=== PATIENT | female | born 1930 | race Caucasian/White ===

== ENCOUNTER → 2017-11-09 | Outpatient (REF) | payer MEDICARE, MEDICAID ==
[~2017-11-09] MED LIST: ACET-1966 PO; ACET-2031 PO; ACET-2043 PO; ALE10 PO; ALEN70TA43 PO; ATOR40TA69 PO; BETA15OI20 TP; BISA-71 PO; CALC-947 PO; CEPH500T7 PO; CHOL100061 PO; CHOL200021 PO; CHOL500025 PO; CIPR-344 PO; CIPR-345 PO; CYAN100017 PO; DICL100G39 TOP; DIME240C2 PO; DOXY-179 PO; EZE10 PO; FURO-45 PO; GAB100 PO; GABA-547 PO; GUAI-244 PO; HYDR12.558 PO; INTE30KI IM; INTE30KI6 IM; INTE30SY IM ONLY; LEV112 PO; LEV88 PO; LEVO-3 PO; LEVO500T PO; LEVO88TA45 PO; LOR5/325 PO; LUTE20CA11 PO; MECL-111 PO; MELA3TAB31 PO; MOM PO; NAPR-1043 PO; NAPR220C12 PO; NIT100 PO; NITR-105 PO; NOR10 PO; PNEU0.5D3 IM; POLY17PO25 PO; SERT25TA90 PO; SPIR1TAB26 PO; SPIR1TAB28 PO; SYSTANEPT OD; SYSTANODPT OU; TRAM-420 PO; VITA1CAP46 PO; ZOLE5INF IV; [UNRECOGNIZED DRUG - CODE] IM; [UNRECOGNIZED DRUG - OTHER] TOP
== END ==
LOC: ZZSPRING 14:16
PROVIDERS: ATTEND Emergency Medicine
DX: R19.7 Diarrhea, unspecified (principal)
CPT/HCPCS: 87045; 87177; 87324; 87449

== ENCOUNTER → 2017-11-24 | Outpatient (CLI) | payer MEDICARE, MEDICAID ==
--- NOTE | 2017-11-24 10:21 | RADIOLOGY IMAGING REPORT ---
FACILITY: [facility] PATIENT NAME: Heather Olguin : 1930 MR: [id number] V: [id number] EXAM DATE: ORDERING PHYSICIAN: CHIVO KAYE TECHNOLOGIST: Location: [facility] [place] Patient: Heather Olguin : 1930 Visit/Account:[id number] Date of Sevice: 11/24/2017 Exam type: ANKLE 3 VIEW MIN RIGHT History: medial ankle tenderness Comparison: None. Findings: There is diffuse osteopenia present. There are mild degenerative changes at the talotibial joint. T here is a well-corticated bony density projecting just medial to the medial malleolus which may repre sent an accessory ossicle versus the sequelae of old trauma. There is no evidence of acute fracture or dislocation involving the right ankle. There is a cortical irregularity seen along the base of th e right fifth metatarsal. This could represent superimposed shadow although fracture not totally exc luded. Clinical correlation needed IMPRESSION: 1. Degenerative changes of the right ankle as described Cortical irregularity along the base of the right fifth metatarsal which could represent a superimpos ed shadow although fracture not totally ruled out. Correlation with patient symptoms needed Report Dictated By: Lisset Godfrey MD at 11/24/2017 10:14 AM Report E-Signed By: Lisset Godfrey MD at 11/24/2017 10:17 AM WSN:[email or web address]
== END ==
LOC: RAD 09:08
PROVIDERS: ATTEND Emergency Medicine
DX: M85.871 Other specified disorders of bone density and structure, right ankle and foot (principal)

== ENCOUNTER → 2017-12-15 | Outpatient (CLI) | payer MEDICARE, MEDICAID | LOC: ZZSPRING 01:43 | PROVIDERS: ATTEND Emergency Medicine | DX: E03.9 Hypothyroidism, unspecified (principal); I10 Essential (primary) hypertension; S93.429A Sprain of deltoid ligament of unspecified ankle, initial encounter; G62.9 Polyneuropathy, unspecified; M81.0 Age-related osteoporosis without current pathological fracture; E53.8 Deficiency of other specified B group vitamins | CPT/HCPCS: 36415; 82040; 82247; 82306; 82310; 82374; 82435; 82565; 82607; 82947; 84075; 84132; 84155; 84295; 84443; 84450; 84460; 84520; 85027 ==

== ENCOUNTER → 2018-05-19 | Outpatient (CLI) | payer MEDICARE, MEDICAID ==
[~2018-05-19] MED LIST changes: +CYAN500T54 PO; +DOCU100T13 PO; +PROM12.556 PO
--- NOTE | 2018-05-19 15:17 | RADIOLOGY IMAGING REPORT ---
FACILITY: [facility] [place] PATIENT NAME: Heather Olguin : 1930 MR: [id number] V: [id number] EXAM DATE: ORDERING PHYSICIAN: CHIVO KAYE TECHNOLOGIST: [place] [facility] [place] Olgu[place] : 1930 Visit/Account:[id number] Date of Sevice: 05/19/2018 BONE MINERAL DENSITY HISTORY: Osteoporosis follow up DEXA Scan Clinical history: Osteopenia. Comparison: DEXA scan from . LUMBAR SPINE: The bone mineral density (BMD) measured from L1-L4 correlates with a Z-score 09/03/2016 and a Z score of 0.0 and a T-score of -2.2 which is osteopenia as defined by the World Health Organization. The c orresponding risk of fracture in the lumbar spine is increased 5 times compared with a young adult re ference population. This value has remained relatively stable by 0.4 % since the prior study. More than 5% change is considered significant. HIP: Bone mineral density (BMD) measured in the Left total hip region correlates with a Z-score -0.9 and a T-score of -3.6 which is osteoporosis as defined by the World Health Organization. The correspondin g risk of fracture in the hip is increased 12 times compared with a young adult reference population. This value has improved by 8.4 % since the prior study. More than 5% change is considered significa nt. Bone mineral density (BMD) measured in the Femoral Neck region measures 0.557 g/cm2. T score of -3.6 . Osteoporosis. Fracture risk increased 12 times IMPRESSION: 1. Lumbar spine: Osteopenia. There has been No significant change in the bone mineral density since the previous exam. 2. Left Total Hip: Osteoporosis. Improvement in bone mineral density by 8.4% 3. Femoral Neck: Bone Mineral Density is 0.557g/cm2. Osteoporosis. The next DEXA scan of this patient should include the following sites: L1-L4 and the left hip. FRAX? WHO Fracture Risk Assessment Tool link: <http://www.shef.ac.uk/FRAX/tool.jsp?locationValue=9> PLEASE NOTE: 1) The World Health Organization defines low BMD as follows: T-score Normal > -1 Osteopenia < -1 and > -2.5 Osteoporosis < -2.5 without fractures Established osteoporosis < -2.5 with fractures 2) In general, you may wish to consider: Diagnosis Treatment Follow-up DEXA Normal BMD Prevention 2-3 years Osteopenia Prevention/therapy 1-2 years Osteoporosis Therapy Yearly 3) Fracture risk estimated from the T-score is more accurate for vertebral fractures (often spontane ous) than for hip fractures. Report Dictated By: Malik Gagnon MD at 05/19/2018 3:08 PM Report E-Signed By: Malik Gagnon MD at 05/19/2018 3:13 PM WSN:[email or web address]
--- NOTE | 2018-05-19 15:25 | RADIOLOGY IMAGING REPORT ---
FACILITY: [facility] - [place] PATIENT NAME: Heather Olguin : 1930 MR: [id number] V: [id number] EXAM DATE: ORDERING PHYSICIAN: CHIVO KAYE TECHNOLOGIST: Location: [facility] - [place] Patient: Heather Olguin : 1930 Visit/Account:[id number] Date of Sevice: 05/19/2018 THYROID HISTORY: Nodule follow up EXAMINATION: Thyroid ultrasound HISTORY: Goiter. Left lobe removed in 1948. COMPARISON: None. FINDINGS: Thyroid size: Right lobe 4.3 x 2.2 x 1.9 cm Left lobe: There appears to be a portion of left lobe of the thyroid remaining that his difficu lt to completely delineate but appears to be approximately 2.6 x 0.6 cm by my measurements. Thyroid nodules: Right lobe - within the heterogenous thyroid gland with what appears to be a heterogenous nodul e in the inferior aspect measuring approximately 1.8 cm in size. Left lobe - none Isthmus - none Thyroid vascularity: normal IMPRESSION: 1. Stable appearing thyroid ultrasound. No interval change in its overall appearance compared to pr evious study. Specifically, stable appearing next solid cystic lesion in the right inferior pole. Report Dictated By: Malik Gagnon MD at 05/19/2018 3:14 PM Report E-Signed By: Malik Gagnon MD at 05/19/2018 3:21 PM WSN:[email or web address]
--- NOTE | 2018-05-20 09:26 | RADIOLOGY IMAGING REPORT ---
FACILITY: [facility] - [place] PATIENT NAME: Heather Olguin : 1930 MR: [id number] V: [id number] EXAM DATE: ORDERING PHYSICIAN: CHIVO KAYE TECHNOLOGIST: Location: [facility] Patient: Heather Olguin : 1930 Visit/Account:[id number] Date of Sevice: 05/19/2018 ARTERIAL BILAT LOWER EXT INDICATION: Absent. Pulses. COMPARISON: None available. FINDINGS: Bilateral lower extremity arterial ultrasound. Mild scattered calcified plaque bilaterally. LEFT: Common femoral artery: Biphasic waveform with peak systolic velocity of 115 cm/s. Deep femoral artery: Biphasic waveform with peak systolic velocity is 79.2 cm/s. Proximal superficial femoral artery: Biphasic waveform with a peak systolic velocity of 102 cm/s. Mid superficial femoral artery: Biphasic waveform with a peak systolic velocity of 84.1 cm/s. Distal superficial femoral artery: Biphasic waveform with a peak systolic velocity of 140 cm/s. Proximal popliteal artery: Biphasic waveform with a peak systolic velocity of 149 cm/s. Distal popliteal artery: Biphasic waveform with a peak systolic velocity of 36.4 cm/s. Peroneal artery: Biphasic waveform with a peak systolic velocity of 10.1 cm/s. Proximal posterior tibial artery: Biphasic waveform with a peak systolic velocity of 50.1 cm/s. Mid posterior tibial artery: Biphasic waveform with a peak systolic velocity of 49.1 cm/s. Distal posterior tibial artery: Biphasic waveform with a peak systolic velocity of 47.7 cm/s. Anterior tibial artery: Biphasic waveform with a peak systolic velocity of 39 cm/s. Dorsalis pedis artery: Biphasic waveform with a peak systolic velocity of 21.5 cm/s. RIGHT: Common femoral artery: Triphasic waveform with a peak systolic velocity of 140 cm/s. Deep femoral artery: Triphasic waveform with a peak systolic velocity of 118 cm/s. Proximal superficial femoral artery: Triphasic waveform with a peak systolic velocity of 46.9 cm/s. Mid superficial femoral artery: Monophasic waveform with a peak systolic velocity of 36.7 cm/s. Distal superficial femoral artery: Monophasic waveform with a peak systolic velocity of 55.3 cm/s. Proximal popliteal artery: Monophasic waveform with a peak systolic velocity of 89.4 cm/s. Distal popliteal artery: Monophasic waveform with a peak systolic velocity of 42.5 cm/s. Peroneal artery: Monophasic waveform with a peak systolic velocity of 40.5 cm/s. Proximal posterior tibial artery: Monophasic waveform with a peak systolic velocity of 16.3 cm/s. Mid posterior tibial artery: Monophasic waveform with a peak systolic velocity of 23.3 cm/s. Distal posterior tibial artery: Monophasic waveform with a peak systolic velocity of 35.5 cm/s. Anterior tibial artery: Monophasic waveform with a peak systolic velocity of 47.6 cm/s. Dorsalis pedis artery: Monophasic waveform with a peak systolic velocity of 39 cm/s. IMPRESSION: Mild scattered calcified plaque bilaterally with velocities and waveforms as above. Report Dictated By: Taras Griffith MD at 05/20/2018 8:45 AM Report E-Signed By: Taras Griffith MD at 05/20/2018 9:23 AM WSN:[id number]
== END ==
LOC: US 01:08
PROVIDERS: ATTEND Emergency Medicine
DX: M85.88 Other specified disorders of bone density and structure, other site (principal); M81.0 Age-related osteoporosis without current pathological fracture; I25.84 Coronary atherosclerosis due to calcified coronary lesion; E04.1 Nontoxic single thyroid nodule
CPT/HCPCS: 76536; 77080; 93925

== ENCOUNTER → 2018-06-29 | Outpatient (CLI) | payer MEDICARE, OTHER ==
[~2018-06-29] MED LIST changes: +MEMA5TAB14 PO
[2018-06-29 14:16] LABS: PLATELET COUNT, AUTOMATED 297 K/uL (150-450)
== END ==
LOC: LAB 13:52
PROVIDERS: ATTEND Emergency Medicine
DX: R19.7 Diarrhea, unspecified (principal)
CPT/HCPCS: 36415; 82310; 82374; 82435; 82565; 82947; 84132; 84295; 84443; 84520; 85025

== ENCOUNTER → 2018-07-21 | Outpatient (REF) | payer MEDICARE, MEDICAID ==
[~2018-07-21] MED LIST changes: +CEPH-13 PO; +LOPE2CAP15 PO
== END ==
LOC: ZZSPRING 11:22
PROVIDERS: ATTEND Nurse Practitioner Family
DX: R35.0 Frequency of micturition (principal)
CPT/HCPCS: 81001; 87088

== ENCOUNTER 2018-07-28 11:29 | Emergency (ER) | payer MEDICARE, MEDICAID ==
[~2018-07-28 11:29] MED LIST changes: -ASPI-1471 PO
--- NOTE | 2018-07-28 11:32 | ER Report ---
History and Physical Time Seen By : 11:32 HPI/ROS 87 y/o female got out of bed and twisted her left ankle as she placed her foot on the ground. Now with pain in her left ankle. No other pain or injuries. Takes 81mg ASA daily. Remainder of the 14 system rev: Yes Allergies: Coded Allergies: Sulfa (Sulfonamide Antibiotics) (Verified Allergy, Unknown, 05/02/15) erythromycin base (Verified Allergy, Unknown, 05/02/15) sulfamethoxazole (Verified Allergy, Unknown, 05/02/15) trimethoprim (Verified Allergy, Unknown, 05/02/15) tolterodine (Verified Adverse Reaction, Severe, HALLUCINATIONS, 05/02/15) ESTEVAN Inhibitors (Verified Adverse Reaction, Mild, cough, 05/02/15) Home Meds Active Scripts Tramadol Hcl (TRAMADOL HCL) 50 Mg Tablet, 1 TAB PO TID for PAIN, #180 TAB 1 Refill Prov:CHIVO KAYE MD 07/15/18 Memantine Hcl 5 Mg (NAMENDA 5 MG) 5 Mg Tablet, 5 MG PO QDAY, #60 TAB 11 Refills Prov:CHIVO KAYE MD 07/15/18 Docusate Sodium (DOCUSATE SODIUM) 100 Mg Tablet, 100 MG PO DAILY, #90 TAB 3 Refills Prov:CHIVO KAYE MD 05/12/18 Levothyroxine Sodium (LEVOTHYROXINE SODIUM) 88 Mcg Tablet, 1 TAB PO QDAY, #90 TAB 3 Refills Prov:CHIVO KAYE MD 02/24/18 Cyanocobalamin (Vitamin B-12) (B-12) 500 Mcg Tablet, 1 TAB PO DAILY, #90 TAB 3 Refills Prov:CHIVO KAYE MD 12/28/17 Alendronate Sodium (FOSAMAX) 70 Mg Tablet, 70 MG PO QWK, #12 TAB 4 Refills Prov:CHIVO KAYE MD 12/03/17 Polyethylene Glycol 3350 (MIRALAX) 17 Gm Powd.pack, 1 PACKET PO QODAY, #90 BOX 3 Refills Prov:CHIVO KAYE MD 11/04/17 Cholecalciferol (Vitamin D3) (VITAMIN D) 2,000 Unit Capsule, 1 TAB PO QDAY, #90 CAPSULE 2 Refills Prov:CHIVO KAYE MD 09/04/16 Reported Medications Aspirin (ASPIR 81) 81 Mg Tablet.dr, 81 MG PO QDAY, TAB 07/28/18 Acetaminophen (ACETAMINOPHEN) 325 Mg Tablet, 325 MG PO PRN, TAB Take 1-2 tabs po every 4 hours as needed for complaints of pain or elevated temperature. Not to exceed 4 doses in 24 hours. 07/15/18 Loperamide HCl (Imodium A-D) 2 Mg Capsule, 2 TAB PO PRN Take 2 tabs after each loose stool, then 1 after other loose stools. Do not exceed 8 doses in 24 hours. If diarrhea persists longer than 24 hours, call provider. 07/15/18 Promethazine Hcl (PROMETHAZINE HCL) 12.5 Mg Tablet, 12.5 MG PO PRN, TAB Take one half of 25 mg tab to equal 12.5 mg tablet every 4 hours as needed for nausea-vomiting. 03/04/18 Naproxen Sodium (ALEVE) 220 Mg Capsule, 220 MG PO BID PRN for PRN, CAPSULE 08/25/17 Bisacodyl (BISACODYL) 5 Mg Tablet.dr, 1-2 TAB PO PRN for prn 08/25/17 Polyeth Glycol/Propylene Glyco (SYSTANE 0.3-0.4% EYE DROPS) 15 Ml Soln, 1 DROP OU BID 08/25/17 Dimethyl Fumarate (TECFIDERA) 240 Mg Capsule.dr, 1 TAB PO BID 06/26/15 Magnesium Hydroxide (MILK OF MAGNESIA) 400 Mg/5 Ml Oral.susp, 400 MG PO Q8H PRN for CONSTIPATION 07/17/14 Discontinued Reported Medications Guaifenesin (ROBAFEN) 100 Mg/5 Ml Liquid, 5 ML PO PRN for PRN 08/25/17 Discontinued Scripts Cephalexin (KEFLEX) 500 Mg Capsule, 1 CAP PO BID, #14 CAP 0 Refills Prov:BERNICE PLAZA APRN [employer]ALL P[employer]ER-C 07/21/18 Reviewed Nurses Notes: Yes Old Medical Records Reviewed: Yes Hx Smoking: No Smoking Status: Never Smoker Exposure to Second Hand Smoke?: No Hx Substance Use Disorder: Yes Hx Alcohol Use: No Constitutional Vital Sign - Last 24 Hours 07/28/18 07/28/18 07/28/18 07/28/18 11:29 11:34 11:34 11:40 Temp 98.0 Pulse ??? 82 Resp 20 B/P (MAP) 166/81 (109) 166/81 102/84 (90) Pulse Ox 92 O2 Delivery Room Air 07/28/18 07/28/18 07/28/18 07/28/18 11:44 11:59 12:00 12:14 Pulse 82 76 79 Resp 11 32 35 B/P (MAP) 124/74 (91) Pulse Ox 92 94 91 07/28/18 07/28/18 07/28/18 07/28/18 12:20 12:29 12:40 12:44 Pulse 81 75 Resp 19 21 B/P (MAP) 147/88 (107) 148/75 (99) Pulse Ox 90 91 07/28/18 07/28/18 07/28/18 07/28/18 12:49 13:00 13:04 13:19 Pulse 85 80 83 Resp 22 21 21 B/P (MAP) 150/60 (90) Pulse Ox 91 90 90 07/28/18 07/28/18 07/28/18 07/28/18 13:20 13:34 13:40 13:49 Pulse 83 83 Resp 13 23 B/P (MAP) 150/80 (103) 161/92 (115) Pulse Ox 92 89 07/28/18 07/28/18 07/28/18 07/28/18 14:00 14:04 14:09 14:19 Pulse 83 88 Resp 17 54 B/P (MAP) 144/79 (100) Pulse Ox 96 94 O2 Flow Rate 2.0 07/28/18 14:34 Pulse 95 Resp 35 Pulse Ox 95 Physical Exam General Appearance: The patient is alert, has no immediate need for airway protection and no current signs of toxicity. Eyes: Pupils equal and round no injection. Respiratory: Chest is non tender, lungs are clear to auscultation. Cardiac: regular rate and rhythm Gastrointestinal: Abdomen is soft and non tender, no masses, bowel sounds normal. Musculoskeletal: Obvious deformity to the left ankle. No breaks in skin. Pulses in tact. Neck: Neck is supple and non tender. Extremities have full range of motion and are non tender. Skin: No rashes or lesions. DIFFERENTIAL DIAGNOSIS: After history and physical exam differential diagnosis was considered for fracture, dislocation, other traumatic injuries Medical Decision Making Data Points Result Diagram: 07/28/18 1206 07/28/18 1206 Laboratory Hematology Test 07/28/18 12:06 Red Blood Count 4.72 M/uL (4.17-5.56) Mean Corpuscular Volume 89.4 fL (80.0-96.0) Mean Corpuscular Hemoglobin 30.2 pg (26.0-33.0) Mean Corpuscular Hemoglobin Concent 33.8 g/dL (32.0-36.0) Red Cell Distribution Width 15.6 % (11.5-14.5) Mean Platelet Volume 7.1 fL (7.2-11.1) Neutrophils (%) (Auto) 71.2 % (39.4-72.5) Lymphocytes (%) (Auto) 13.0 % (17.6-49.6) Monocytes (%) (Auto) 8.2 % (4.1-12.4) Eosinophils (%) (Auto) 6.7 % (0.4-6.7) Basophils (%) (Auto) 0.9 % (0.3-1.4) Nucleated RBC Relative Count (auto) 0.1 /100WBC Neutrophils # (Auto) 5.7 K/uL (2.0-7.4) Lymphocytes # (Auto) 1.0 K/uL (1.3-3.6) Monocytes # (Auto) 0.7 K/uL (0.3-1.0) Eosinophils # (Auto) 0.5 K/uL (0.0-0.5) Basophils # (Auto) 0.1 K/uL (0.0-0.1) Nucleated RBC Absolute Count (auto) 0.01 K/uL Prothrombin Time 13.2 seconds (12.0-14.4) Prothromb Time International Ratio 1.00 Activated Partial Thromboplast Time 27 seconds (23-35) Sodium Level 143 mmol/L (137-145) Potassium Level 4.6 mmol/L (3.5-5.0) Chloride Level 107 mmol/L (98-107) Carbon Dioxide Level 24 mmol/L (22-31) Blood Urea Nitrogen 31 mg/dl (7-18) Creatinine 0.90 mg/dl (0.52-1.04) Glomerular Filtration Rate Calc 59.0 Random Glucose 84 mg/dl (75-110) Calcium Level 9.3 mg/dl (8.4-10.2) Total Bilirubin 0.5 mg/dl (0.2-1.3) Aspartate Amino Transf (AST/SGOT) 30 U/L (0-35) Alanine Aminotransferase (ALT/SGPT) 48 U/L (0-56) Alkaline Phosphatase 74 U/L (0-126) Total Protein 7.3 g/dl (6.3-8.2) Albumin 4.0 g/dl (3.5-5.0) Chemistry Test 07/28/18 12:06 White Blood Count 8.0 k/uL (4.5-11.0) Red Blood Count 4.72 M/uL (4.17-5.56) Hemoglobin 14.2 g/dL (12.0-16.0) Hematocrit 42.2 % (34.0-47.0) Mean Corpuscular Volume 89.4 fL (80.0-96.0) Mean Corpuscular Hemoglobin 30.2 pg (26.0-33.0) Mean Corpuscular Hemoglobin Concent 33.8 g/dL (32.0-36.0) Red Cell Distribution Width 15.6 % (11.5-14.5) Platelet Count 307 K/uL (150-450) Mean Platelet Volume 7.1 fL (7.2-11.1) Neutrophils (%) (Auto) 71.2 % (39.4-72.5) Lymphocytes (%) (Auto) 13.0 % (17.6-49.6) Monocytes (%) (Auto) 8.2 % (4.1-12.4) Eosinophils (%) (Auto) 6.7 % (0.4-6.7) Basophils (%) (Auto) 0.9 % (0.3-1.4) Nucleated RBC Relative Count (auto) 0.1 /100WBC Neutrophils # (Auto) 5.7 K/uL (2.0-7.4) Lymphocytes # (Auto) 1.0 K/uL (1.3-3.6) Monocytes # (Auto) 0.7 K/uL (0.3-1.0) Eosinophils # (Auto) 0.5 K/uL (0.0-0.5) Basophils # (Auto) 0.1 K/uL (0.0-0.1) Nucleated RBC Absolute Count (auto) 0.01 K/uL Prothrombin Time 13.2 seconds (12.0-14.4) Prothromb Time International Ratio 1.00 Activated Partial Thromboplast Time 27 seconds (23-35) Glomerular Filtration Rate Calc 59.0 Calcium Level 9.3 mg/dl (8.4-10.2) Total Bilirubin 0.5 mg/dl (0.2-1.3) Aspartate Amino Transf (AST/SGOT) 30 U/L (0-35) Alanine Aminotransferase (ALT/SGPT) 48 U/L (0-56) Alkaline Phosphatase 74 U/L (0-126) Total Protein 7.3 g/dl (6.3-8.2) Albumin 4.0 g/dl (3.5-5.0) Coagulation Test 07/28/18 12:06 Prothrombin Time 13.2 seconds Prothromb Time International Ratio 1.00 Activated Partial Thromboplast Time 27 seconds EKG/Imaging Imaging X-ray: left ankle was obtained. I viewed the images myself on the PACS system. My interpretation of the images is: comminuted distal tib/fib fracture. The radiologist interpretation had no clinically significant variation from this interpretation. ED Course/Re-evaluation ED Course Closed comminuted distal tib-fib fracture in an 87-year-old female. Spoke with Dr. Emerson who recommended that the patient be transferred to a higher level of care for operative repair of this fracture. I spoke with both the patient and her sister who is at the bedside. They aren't amenable to the transfer. Distl pulses were checked throughout her stay, and remained palpable. She will be transferred to [facility] for definitive care. Decision to Disposition Date: Jul 28, 2018 Decision to Disposition Time: 15:20 Depart Departure Latest Vital Signs Vital Signs Date Time Temp Pulse Resp B/P (MAP) Pulse Ox O2 Delivery O2 Flow Rate FiO2 07/28/18 14:34 95 35 95 07/28/18 14:09 2.0 07/28/18 14:00 144/79 (100) 07/28/18 11:34 98.0 Room Air Impression: Primary Impression: Tibia/fibula fracture Condition: Improved Disposition: XFER TO ACUTE CARE HOSPITAL Referrals: CHIVO KAYE MD (PCP) Problem Qualifiers Primary Impression: Tibia/fibula fracture Encounter type: initial encounter Fracture type: closed Laterality: left Qualified Codes: S82.202A - Unspecified fracture of shaft of left tibia, initial encounter for closed fracture; S82.402A - Unspecified fracture of shaft of left fibula, initial encounter for closed fracture DELROY DERAS MD Jul 28, 2018 11:32
[2018-07-28] MEDS ORDERED: MORPHINE 4 MG/ML SDV IVP ONE ×3 (11:35→15:25)
[2018-07-28 12:11] LABS: PLATELET COUNT, AUTOMATED 307 K/uL (150-450)
[2018-07-28] MEDS ORDERED: ASPI-1471 PO (12:39)
--- NOTE | 2018-07-28 13:09 | RADIOLOGY IMAGING REPORT ---
FACILITY: [facility] PATIENT NAME: Heather Olguin : 1930 MR: [id number] V: [id number] EXAM DATE: ORDERING PHYSICIAN: DELROY DERAS TECHNOLOGIST: Location: [facility] Patient: eHather Olguin : 1930 Visit/Account:[id number] Date of Sevice: 07/28/2018 KNEE LIMITED LEFT, ANKLE 2 VIEW LEFT Indication: Pain. Fall and deformity. Comparison: None available Findings: Left knee: 2 views of the left knee are performed. Generalized decreased bone mineralization is pres ent. A curvilinear nondisplaced fracture in the proximal fibular diaphysis is likely present on fron lacey view. Assessment in the lateral plane is limited due to overlying item extrinsic to patient. Ve ry mild medial femoral tibial compartment narrowing is present on these nonweightbearing images. No significant joint effusion is present. Mild extensor mechanism enthesopathy is present at the patell a. There is some mild soft tissue fullness lateral to the proximal fibula. Left ankle: 2 views of the left ankle show decreased bone mineralization. Comminuted impacted fractu res of the distal fibula and tibial metadiaphyses are present. Fractures appear to be proximal to th e level of the distal tibiofibular syndesmosis. No definite malalignment in the ankle joint is seen on these nonweightbearing images. There is significant surrounding soft tissue swelling noted. IMPRESSION: 1. Acute comminuted impacted fractures in the distal tibia and fibula metadiaphyses. 2. Possible nondisplaced fracture proximal fibular diaphysis. Report Dictated By: Radha Navas MD at 07/28/2018 12:54 PM Report E-Signed By: Radha Navas MD at 07/28/2018 1:06 PM WSN:[email or web address]
--- NOTE | 2018-07-28 13:10 | RADIOLOGY IMAGING REPORT ---
FACILITY: [facility] - [place] PATIENT NAME: Heather Olguin : 1930 MR: [id number] V: [id number] EXAM DATE: ORDERING PHYSICIAN: DELROY DERAS TECHNOLOGIST: Location: [facility] Patient: Heather Olguin : 1930 Visit/Account:[id number] Date of Sevice: 07/28/2018 KNEE LIMITED LEFT, ANKLE 2 VIEW LEFT Indication: Pain. Fall and deformity. Comparison: None available Findings: Left knee: 2 views of the left knee are performed. Generalized decreased bone mineralization is pres ent. A curvilinear nondisplaced fracture in the proximal fibular diaphysis is likely present on fron lacey view. Assessment in the lateral plane is limited due to overlying item extrinsic to patient. Ve ry mild medial femoral tibial compartment narrowing is present on these nonweightbearing images. No significant joint effusion is present. Mild extensor mechanism enthesopathy is present at the patell a. There is some mild soft tissue fullness lateral to the proximal fibula. Left ankle: 2 views of the left ankle show decreased bone mineralization. Comminuted impacted fractu res of the distal fibula and tibial metadiaphyses are present. Fractures appear to be proximal to th e level of the distal tibiofibular syndesmosis. No definite malalignment in the ankle joint is seen on these nonweightbearing images. There is significant surrounding soft tissue swelling noted. IMPRESSION: 1. Acute comminuted impacted fractures in the distal tibia and fibula metadiaphyses. 2. Possible nondisplaced fracture proximal fibular diaphysis. Report Dictated By: Radha Navas MD at 07/28/2018 12:54 PM Report E-Signed By: Radha Navas MD at 07/28/2018 1:06 PM WSN:[email or web address]
== END 2018-07-28 15:35 | disposition short-term general hospital (02) ==
LOC: ER 11:45
DX: S82.202A Unspecified fracture of shaft of left tibia, initial encounter for closed fracture (principal)
CPT/HCPCS: 36415; 73560; 73600; 85025; 85610; 85730; 96374; 96376; 99285; J2270; 82040; 82247; 82310; 82374; 82435; 82565; 82947; 84075; 84132; 84155; 84295; 84450; 84460; 84520; C1758

== ENCOUNTER → 2018-07-28 | Outpatient (CLI) | payer MEDICARE, MEDICAID ==
[~2018-07-28] MED LIST changes: +ASPI-1471 PO
== END ==
LOC: AMB 15:17
PROVIDERS: ATTEND Nurse Practitioner
DX: S82.202A Unspecified fracture of shaft of left tibia, initial encounter for closed fracture (principal); S82.402A Unspecified fracture of shaft of left fibula, initial encounter for closed fracture; W05.0XXA Fall from non-moving wheelchair, initial encounter
CPT/HCPCS: A0425; A0426; A0888

== ENCOUNTER → 2018-07-28 | Outpatient (CLI) | payer MEDICARE, MEDICAID | LOC: AMB 11:08 | PROVIDERS: ATTEND Nurse Practitioner | DX: M25.572 Pain in left ankle and joints of left foot (principal); W05.0XXA Fall from non-moving wheelchair, initial encounter | CPT/HCPCS: A0425; A0427 ==